=== PATIENT | female | born 1955 | race Caucasian/White ===

== ENCOUNTER 2025-05-14 14:34 | Inpatient (IN) | payer OTHER, MEDICAID ==
[2025-05-14] MEDS ORDERED: Non-Formulary Item 1 EACH (Naloxone Hcl [Narcan] 4 MG Spray) NS PRN (18:22)
[2025-05-14] MEDS: Gabapentin 300 MG CAP PO SCH (20:29)
[2025-05-14] MEDS: Apixaban 5 MG TAB PO SCH (20:31)
[2025-05-14] MEDS: Diphenoxylate HCl/Atropine Tablet PO SCH (20:32)
[2025-05-14] MEDS: Diclofenac 1% 100 GM Topical GEL TP SCH (20:32)
[2025-05-15] MEDS: Cyclobenzaprine 10 MG TAB PO PRN (01:34)
[2025-05-15] MEDS: Melatonin 3 MG TAB PO PRN (01:36)
[2025-05-15] MEDS: Acetaminophen 500 MG TAB PO PRN (01:41)
[2025-05-15] MEDS: Gabapentin 300 MG CAP PO SCH (05:22)
[2025-05-15 06:11] VITALS: BMI 41.5
[2025-05-15] MEDS: Pantoprazole 40 MG DR.TAB PO SCH (08:37)
[2025-05-15] MEDS ORDERED: MULTIVITAMINS IV SCH (14:00)
[2025-05-15] MEDS ORDERED: MULTITRACE IV SCH (14:00)
[2025-05-15] MEDS ORDERED: LYTES IV SCH (14:00)
[2025-05-15] MEDS ORDERED: D15W AA IV SCH (14:00)
[2025-05-15] MEDS ORDERED: D15W AA 5% IV SCH (14:00)
[2025-05-15] MEDS ORDERED: [UNRECOGNIZED DRUG - OTHER] IV SCH (14:00)
[2025-05-15] MEDS ORDERED: FAT EMULSION IV SCH (14:00)
[2025-05-15] MEDS: D15W AA IV SCH (15:13)
[2025-05-15] MEDS: MULTITRACE IV SCH (15:13)
[2025-05-15] MEDS: MULTIVITAMINS IV SCH (15:13)
[2025-05-15] MEDS: [UNRECOGNIZED DRUG - OTHER] IV SCH (15:13)
[2025-05-16 05:40] LABS: #Basophils 0.1 thou/uL (0.0-0.2); #Eosinophils 0.2 thou/uL (0.0-0.7); #Lymphocytes 0.8 thou/uL (1.20-3.40); #Monocytes 0.4 thou/uL (0.11-0.59); #Neutrophils 2.1 thou/uL (1.40-6.50); %Basophils 2.1 % (0.0-1.0); %Eosinophils 4.3 % (0.0-10.0); %Lymphocytes 22.0 % (21.0-51.0); %Monocytes 10.7 % (0.0-10.0); %Neutrophils 61.0 % (42.0-75.0); Hematocrit 24.7 % (36.0-47.0); Hemoglobin 8.1 g/dL (12.0-16.0); Mean Corpuscular Hemoglobin 26.7 pg (27.0-31.0); Mean Corpuscular Volume 81.1 fl (78.0-98.0); Platelet Count 87 10x3/uL (130-400); Red Blood Cell (RBC) Count 3.05 mill/uL (4.20-5.40); White Blood Cell (WBC) Count 3.5 10x3/uL (4.8-10.8)
[2025-05-16 05:51] LABS: ALT (SGPT) 11 U/L (Less than 34); AST (SGOT) 27 U/L (11-34); Albumin 2.5 g/dL (3.1-4.5); Alkaline Phosphatase 105 U/L (40-110); Anion Gap 13 mmol/L (10-20); BUN (Urea Nitrogen) 25 mg/dL (9.8-20.1); Bilirubin, Total 0.7 mg/dL (0.3-1.2); Calc. Creatinine Clearance 111 mL/min (70-130); Calcium 8.3 mg/dL (7.8-10.44); Carbon Dioxide 25 mmol/L (23-31); Chloride 105 mmol/L (98-107); Globulin 3.9 g/dL (2.4-3.5); Glucose 99 mg/dL (80-115); Potassium 4.3 mmol/L (3.5-5.1); Sodium 139 mmol/L (136-145)
[2025-05-17] MEDS: Nystatin Powder 15 GM BOT TOP PRN (21:46)
[2025-05-18 08:51] LABS: #Basophils 0.0 thou/uL (0.0-0.2); #Eosinophils 0.2 thou/uL (0.0-0.7); #Lymphocytes 0.7 thou/uL (1.20-3.40); #Monocytes 0.4 thou/uL (0.11-0.59); #Neutrophils 1.9 thou/uL (1.40-6.50); %Basophils 1.3 % (0.0-1.0); %Eosinophils 5.3 % (0.0-10.0); %Lymphocytes 21.9 % (21.0-51.0); %Monocytes 11.0 % (0.0-10.0); %Neutrophils 60.5 % (42.0-75.0); Hematocrit 25.1 % (36.0-47.0); Hemoglobin 8.3 g/dL (12.0-16.0); Mean Corpuscular Hemoglobin 26.7 pg (27.0-31.0); Mean Corpuscular Volume 80.3 fl (78.0-98.0); Platelet Count 89 10x3/uL (130-400); Red Blood Cell (RBC) Count 3.13 mill/uL (4.20-5.40); White Blood Cell (WBC) Count 3.1 10x3/uL (4.8-10.8)
[2025-05-18 09:07] LABS: ALT (SGPT) 11 U/L (Less than 34); AST (SGOT) 28 U/L (11-34); Albumin 2.6 g/dL (3.1-4.5); Alkaline Phosphatase 109 U/L (40-110); Anion Gap 13 mmol/L (10-20); BUN (Urea Nitrogen) 23 mg/dL (9.8-20.1); Bilirubin, Total 0.7 mg/dL (0.3-1.2); Calc. Creatinine Clearance 107 mL/min (70-130); Calcium 8.5 mg/dL (7.8-10.44); Carbon Dioxide 27 mmol/L (23-31); Chloride 105 mmol/L (98-107); Globulin 4.2 g/dL (2.4-3.5); Glucose 112 mg/dL (80-115); Potassium 3.9 mmol/L (3.5-5.1); Sodium 141 mmol/L (136-145)
[2025-05-21 05:08] LABS: #Basophils 0.0 thou/uL (0.0-0.2); #Eosinophils 0.1 thou/uL (0.0-0.7); #Lymphocytes 0.7 thou/uL (1.20-3.40); #Monocytes 0.3 thou/uL (0.11-0.59); #Neutrophils 1.8 thou/uL (1.40-6.50); %Basophils 0.7 % (0.0-1.0); %Eosinophils 4.1 % (0.0-10.0); %Lymphocytes 24.0 % (21.0-51.0); %Monocytes 10.8 % (0.0-10.0); %Neutrophils 60.4 % (42.0-75.0); Hematocrit 22.6 % (36.0-47.0); Hemoglobin 7.9 g/dL (12.0-16.0); Mean Corpuscular Hemoglobin 27.2 pg (27.0-31.0); Mean Corpuscular Volume 78.2 fl (78.0-98.0); Platelet Count 96 10x3/uL (130-400); Red Blood Cell (RBC) Count 2.89 mill/uL (4.20-5.40); White Blood Cell (WBC) Count 3.0 10x3/uL (4.8-10.8)
[2025-05-21 05:24] LABS: ALT (SGPT) 11 U/L (Less than 34); AST (SGOT) 26 U/L (11-34); Albumin 2.5 g/dL (3.1-4.5); Alkaline Phosphatase 119 U/L (40-110); Anion Gap 14 mmol/L (10-20); BUN (Urea Nitrogen) 24 mg/dL (9.8-20.1); Bilirubin, Total 0.7 mg/dL (0.3-1.2); Calc. Creatinine Clearance 116 mL/min (70-130); Calcium 8.4 mg/dL (7.8-10.44); Carbon Dioxide 25 mmol/L (23-31); Chloride 107 mmol/L (98-107); Globulin 4.0 g/dL (2.4-3.5); Glucose 112 mg/dL (80-115); Magnesium 1.5 mg/dL (1.6-2.6); Potassium 3.7 mmol/L (3.5-5.1); Sodium 142 mmol/L (136-145)
[2025-05-21] MEDS: Ergocalciferol 1.25 MG(50,000 UNITS) CAP PO SCH (08:04)
[2025-05-21] MEDS: Magnesium 2 GM/50 ML(in water) 2 GM in Premix 1 BAG IVPB SCH (10:05)
[2025-05-22] MEDS: Ferrous Sulfate 325 MG TAB PO SCH (08:57)
[2025-05-24 05:35] LABS: #Basophils 0.0 thou/uL (0.0-0.2); #Eosinophils 0.1 thou/uL (0.0-0.7); #Lymphocytes 0.7 thou/uL (1.20-3.40); #Monocytes 0.4 thou/uL (0.11-0.59); #Neutrophils 1.5 thou/uL (1.40-6.50); %Basophils 0.8 % (0.0-1.0); %Eosinophils 4.6 % (0.0-10.0); %Lymphocytes 25.9 % (21.0-51.0); %Monocytes 14.4 % (0.0-10.0); %Neutrophils 54.3 % (42.0-75.0); Hematocrit 21.6 % (36.0-47.0); Hemoglobin 7.2 g/dL (12.0-16.0); Mean Corpuscular Hemoglobin 26.5 pg (27.0-31.0); Mean Corpuscular Volume 80.0 fl (78.0-98.0); Platelet Count 95 10x3/uL (130-400); Red Blood Cell (RBC) Count 2.71 mill/uL (4.20-5.40); White Blood Cell (WBC) Count 2.7 10x3/uL (4.8-10.8)
[2025-05-24] MEDS ORDERED: Iopamidol 370 76% 100 ML VIAL ONE (16:32)
[2025-05-26 05:54] LABS: ALT (SGPT) 9 U/L (Less than 34); AST (SGOT) 22 U/L (11-34); Albumin 2.2 g/dL (3.1-4.5); Alkaline Phosphatase 88 U/L (40-110); Anion Gap 10 mmol/L (10-20); BUN (Urea Nitrogen) 22 mg/dL (9.8-20.1); Bilirubin, Total 0.5 mg/dL (0.3-1.2); Calc. Creatinine Clearance 136 mL/min (70-130); Calcium 7.1 mg/dL (7.8-10.44); Carbon Dioxide 24 mmol/L (23-31); Chloride 111 mmol/L (98-107); Globulin 3.4 g/dL (2.4-3.5); Glucose 131 mg/dL (80-115); Potassium 3.4 mmol/L (3.5-5.1); Sodium 142 mmol/L (136-145)
[2025-05-26 06:00] LABS: Hematocrit 20.2 % (36.0-47.0); Hemoglobin 6.6 g/dL (12.0-16.0); Mean Corpuscular Hemoglobin 26.1 pg (27.0-31.0); Mean Corpuscular Volume 79.8 fl (78.0-98.0); Platelet Count 81 10x3/uL (130-400); Red Blood Cell (RBC) Count 2.53 mill/uL (4.20-5.40); White Blood Cell (WBC) Count 2.2 10x3/uL (4.8-10.8)
[2025-05-26 06:02] LABS: MDiff Complete? YES; Platelet Adequacy Comment Appears Decreased
[2025-05-26] MEDS: Potassium Chloride 20 MEQ in Premix 1 BAG IVPB SCH ×2 (09:15→10:56)
[2025-05-26] MEDS: Potassium Chloride 20 MEQ (100 mL) BAG ONE ×2 (10:55→15:43)
[2025-05-26 12:43] VITALS: BP 159/82; TEMP 98.5
== END 2025-05-26 15:15 | disposition short-term general hospital (02) | DRG 945 ==
LOC: BURMED 16:50
PROVIDERS: ADMIT Family Medicine; ATTEND Family Medicine
PROC: F08Z0ZZ Bathing/Showering Techniques Treatment (ICD-10-PCS; principal; 2025-05-15)
PROC: F07Z5ZZ Bed Mobility Treatment (ICD-10-PCS; 2025-05-15)
PROC: 3E03329 Introduction of Other Anti-infective into Peripheral Vein, Percutaneous Approach (ICD-10-PCS; 2025-05-15)
PROC: 30233N1 Transfusion of Nonautologous Red Blood Cells into Peripheral Vein, Percutaneous Approach (ICD-10-PCS; 2025-05-26)
DX: T85.9XXD Unspecified complication of internal prosthetic device, implant and graft, subsequent encounter (principal); D61.818 Other pancytopenia; I38 Endocarditis, valve unspecified; R78.81 Bacteremia; K90.829 Short bowel syndrome, unspecified; R53.81 Other malaise; D64.9 Anemia, unspecified; I48.0 Paroxysmal atrial fibrillation; Z78.9 Other specified health status; Z93.3 Colostomy status; Z79.899 Other long term (current) drug therapy; Z98.890 Other specified postprocedural states; I10 Essential (primary) hypertension; Z85.53 Personal history of malignant neoplasm of renal pelvis; Z88.5 Allergy status to narcotic agent; Z91.018 Allergy to other foods; Z93.2 Ileostomy status
CPT/HCPCS: 36415; 36430; 74178; 80053; 82550; 83735; 84100; 85025; 86140; 86850; 86900; 86901; J0712; J0878; J3010; J3475; J3480; P9016; Q0162; Q9967